=== PATIENT | male | born 1960 | race Caucasian/White ===

== ENCOUNTER 2020-07-15 21:36 | Emergency (ER) | payer BC, OTHER ==
[2020-07-15 21:46] VITALS: RESP 18
[2020-07-15] MEDS ORDERED: ASPIRIN 81 MG PO STA (22:06)
[2020-07-15] MEDS ORDERED: PANTOPRAZOLE 40 MG/10 ML VIAL IVP STA (22:06)
--- NOTE | 2020-07-15 22:28 | ED ---
Chest Pain HPI - General Chief Complaint: Chest Pain Stated Complaint: Chest Pain Time Seen by Provider: 07/15/20 21:55 Source: patient, RN notes reviewed, old records reviewed Mode of arrival: wheelchair Limitations: no limitations - History of Present Illness Initial Comments: Patient is a 5-year-old male presents to the ER today for evaluation for co mplaints of substernal chest pain off-and-on today. He states that he feels that it is angina. Patient's had no previous history of heart attacks or coronary artery disease. He states that he recently started medication for high cholesterol. He also states that he's been taking a lot of Bryan and Motrin due to sciatica and lower back pain for the past 10 days. Patient reports that seeming to improve at this time with now developed a substernal pain. He denies any back pain or shortness of breath. Denies any radiation on the upper arms or jaw. - Related Data Home Medications Medication Instructions Recorded Confirmed Atorvastatin [Lipitor] 80 mg PO HS 07/15/20 07/15/20 HYDROcodone/APAP 5-325MG [Bryan 1 tab PO Q6H PRN 07/15/20 07/15/20 5-325] Ibuprofen [Motrin] 600 mg PO Q6H PRN 07/15/20 07/15/20 Allergies Allergy/AdvReac Type Severity Reaction Status Date / Time morphine Allergy Vomiting Verified 07/15/20 23:37 naproxen [From Naprosyn] Allergy Rash/Hives Verified 07/15/20 23:37 Review of Systems ROS Statement: Those systems with pertinent positive or pertinent negative responses have been documented in the HPI. ROS Other: All systems not noted in ROS Statement are negative. EKG Findings - EKG Comments: EKG Findings:: EKG performed shows normal sinus rhythm with normal EKG. Ventricular rate of 69 bpm. Pulse 194 ms. QS duration is 100 ms. QT QTc is 4 6/435 ms. Past Medical History Past Medical History: No Reported History Additional Past Medical History / Comment(s): sciatica History of Any Multi-Drug Resistant Organisms: None Reported Past Surgical History: Back Surgery, Cholecystectomy, Hernia Repair, Orthopedic Surgery Additional Past Surgical History / Comment(s): eye surgery, vasectomy Past Psychological History: No Psychological Hx Reported Smoking Status: Never smoker Past Alcohol Use History: Occasional Past Drug Use History: None Reported General Exam - General Exam Comments Initial Comments: 5-year-old male. Alert and oriented. No distress. Limitations: no limitations General appearance: alert, in no apparent distress Head exam: Present: atraumatic, normocephalic, normal inspection Eye exam: Present: normal appearance, PERRL, EOMI. Absent: scleral icterus, conjunctival injection, periorbital swelling ENT exam: Present: normal exam, mucous membranes moist Neck exam: Present: normal inspection. Absent: tenderness, meningismus, lymphadenopathy Respiratory exam: Present: normal lung sounds bilaterally. Absent: respiratory distress, wheezes, rales, rhonchi, stridor Cardiovascular Exam: Present: regular rate, normal rhythm, normal heart sounds. Absent: systolic murmur, diastolic murmur, rubs, gallop, clicks GI/Abdominal exam: Present: soft, normal bowel sounds. Absent: distended, tenderness, guarding, rebound, rigid Extremities exam: Present: normal inspection, full ROM, normal capillary refill. Absent: tenderness, pedal edema, joint swelling, calf tenderness Back exam: Present: normal inspection Neurological exam: Present: alert, oriented X3, CN II-XII intact Psychiatric exam: Present: normal affect, normal mood Skin exam: Present: warm, dry, intact, normal color. Absent: rash Course Vital Signs 07/15/20 07/15/20 07/15/20 21:43 22:38 23:37 Temperature 98.5 F 98.7 F Pulse Rate 79 65 59 L Respiratory 18 18 18 Rate Blood Pressure 134/80 136/84 146/88 O2 Sat by Pulse 95 96 98 Oximetry Chest Pain MDM - MDM Is a pleasant 5-year-old male presents emergency room today with over 12 hours of substernal and epigastric pain starting today. Patient reports he has been taking a lot of ibuprofen and Bryan due to sciatic lower back pain. Patient was concerned this was related to his heart. Patient denies chest pains or palpitations. EKG was reviewed and normal. Troponin test was negative and labs are otherwise unremarkable. Normal chest x-ray. Patient at this time has no further pain. I discussed possible admission for cardiac observation. He states he has an appointment tomorrow with his PCP and believes that his symptoms are related to the Motrin use and gastritis. He states that he will not stay in the hospital today. I discussed with close follow-up with primary care doctor and no further pain Patient will be discharged. Discussed strict return parameters. Disposition Clinical Impression: Atypical chest pain, Back pain of lumbar region with sciatica Disposition: HOME SELF-CARE Condition: Good Instructions (If sedation given, give patient instructions): Chest Pain (ED), Gastritis (ED) Additional Instructions: Follow-up with primary care physician tomorrow. Return to the ED if any alarming signs or symptoms occur. Patient should have strict return parameters if you have severe pain, palpitations, or feel short of breath. Recommend avoid NSAIDS for pain relief as this can cause GI upset. Is patient prescribed a controlled substance at d/c from ED?: No Referrals: Mejia Valente MD [Primary Care Provider] - 1-2 days Time of Disposition: 23:48
[2020-07-15 22:41] LABS: Basophils % (A) 0 %; Eosinophils # (A) 0.1 k/uL (0-0.7); Eosinophils % (A) 1 %; HCT 43.9 % (39.0-53.0); HGB 14.5 gm/dL (13.0-17.5); Lymphocytes # (A) 2.2 k/uL (1.0-4.8); Lymphocytes % (A) 29 %; MCH 30.5 pg (25.0-35.0); MCHC 33.1 g/dL (31.0-37.0); MCV 92.2 fL (80.0-100.0); Monocytes # (A) 0.5 k/uL (0-1.0); Monocytes % (A) 6 %; Neutrophils # (A) 4.7 k/uL (1.3-7.7); Neutrophils % (A) 62 %; Platelet Count 218 k/uL (150-450); RBC 4.76 m/uL (4.30-5.90); RDW 12.9 % (11.5-15.5); WBC 7.6 k/uL (3.8-10.6)
[2020-07-15] MEDS ORDERED: NITROGLYCERIN SL TABS 0.4 MG TAB SUBLINGUAL STA (22:47)
[2020-07-15 22:52] LABS: INR 0.9 (<1.2); Partial Thromboplastin Time 22.5 sec (22.0-30.0); Prothrombin Time 9.8 sec (9.0-12.0)
[2020-07-15 22:53] LABS: ALT 63 U/L (4-49); AST 52 U/L (17-59); African American GFR (CKD) >90 (>60 ml/min/1.73 sqM); Albumin 4.2 g/dL (3.5-5.0); Alkaline Phosphatase 78 U/L (38-126); Amylase 49 U/L (30-110); Anion Gap 8 mmol/L; Blood Urea Nitrogen 20 mg/dL (9-20); Calcium 9.1 mg/dL (8.4-10.2); Carbon Dioxide 23 mmol/L (22-30); Chloride 109 mmol/L (98-107); Glucose 109 mg/dL (74-99); Magnesium 2.2 mg/dL (1.6-2.3); Non-African American GFR(CKD) 78 (>60 ml/min/1.73 sqM); Sodium 140 mmol/L (137-145); Total Bilirubin 0.5 mg/dL (0.2-1.3)
[2020-07-15 23:38] VITALS: BP 146/88; PULSE 59; TEMP 98.7
--- NOTE | 2020-07-15 23:38 | XR ---
EXAMINATION TYPE: XR chest 2V DATE OF EXAM: 07/15/2020 COMPARISON: NONE HISTORY: Chest pain TECHNIQUE: FINDINGS: Heart and mediastinum are normal. Lungs are clear. Diaphragm is normal. Bony thorax appears normal. IMPRESSION: Normal chest.
== END 2020-07-15 23:55 | disposition home or self-care (01) ==
LOC: EC 21:36
DX: M54.40 Lumbago with sciatica, unspecified side (principal); R07.89 Other chest pain; Z79.899 Other long term (current) drug therapy; Z88.5 Allergy status to narcotic agent; Z88.6 Allergy status to analgesic agent
CPT/HCPCS: 36415; 93005; 80053; 82150; 83690; 83735; 84484; 85025; 85610; 85730; 71046; 99285; 96374; C9113